=== PATIENT | female | born 1990 ===

== ENCOUNTER 2017-06-03 17:08 | Emergency (ER) | payer MEDICAID ==
[2017-06-03 17:09] VITALS: BMI 48.4
[2017-06-03 17:40] VITALS: BP 139/81; PULSE 124; RESP 20; TEMP 100.7; O2SAT 99
[2017-06-03] MEDS ORDERED: Sodium Chloride 0.9% 1,000 ML IV STA (17:59)
--- NOTE | 2017-06-03 18:35 | ED PDOC ---
Arrival/HPI - General Chief Complaint: Abdominal Pain Time Seen by Provider: 06/03/17 17:33 Historian: Patient - History of Present Illness Narrative History of Present Illness (Text): Patient is a 26 year old with a past medical history of a left sided kidney stone presenting to the emergency room with a chief complaints of right sided abdominal/flank pain. The pain woke the patient up out of her sleep at approximately 4 o'clock this morning. The pain was located in her right flank and radiated around her side and down toward her vagina. She is currently on her period but this pain is different compared to her usual menstrual pains. This pain is very sharp in nature. She woke up, drove to her mother's house and attempted to sleep the pain off. When she was unable to sleep and pain continued to increase, she decided to the emergency room. The pain has been moving and is now located more anterior in her right lower quadrant of her abdomen. She has been unable to eat or drink all day due to the pain, although she is not nauseous and has not vomited. She has not urinated much today and has no associated dysuria. She has been feeling feverish with chills but did not take her temperature at home. Denies diarrhea, constipation, chest pain, shortness of breath, palpitations, headaches, numbness or tingling. LMP: currently has her period PMH: left sided kidney stone once (treated as out patient with medications to "make me pee more and some kind of pain medicine." PSH: 2014 Family: unknown Social: smokes 1-3 cigarettes a couple times a week (1 pack lasts two weeks or longer), social alcohol (last drink on ), admits marijuana but denies illicit drug use Allergies: NKDA Time/Duration: > week (approx 10 days) Past Medical History - Provider Review Nursing Documentation Reviewed: Yes - Infectious Disease Hx of Infectious Diseases: None - Cardiac Hx Cardiac Disorders: No - Pulmonary Hx Respiratory Disorders: No - Neurological Hx Neurological Disorder: No - HEENT Hx HEENT Disorder: No - Renal Hx Renal Disorder: Yes Hx Kidney Stones: Yes Hx Pyelonephritis: Yes Other/Comment: recurrent UTI - Endocrine/Metabolic Hx Endocrine Disorders: No - Hematological/Oncological Hx Blood Disorders: No - Integumentary Hx Dermatological Disorder: No - Musculoskeletal/Rheumatological Hx Musculoskeletal Disorders: No - Gastrointestinal Hx Gastrointestinal Disorders: No - Genitourinary/Gynecological Hx Genitourinary Disorders: Yes Hx Urinary Tract Infection: Yes - Psychiatric Hx Psychophysiologic Disorder: No Hx Substance Use: No - Surgical History Hx Section: Yes Hx Orthopedic Surgery: Yes (left ankle sx) Other/Comment: 08/26/14 - Anesthesia Hx Anesthesia: No - Suicidal Assessment Feels Threatened In Home Enviroment: No Family/Social History - Physician Review Nursing Documentation Reviewed: Yes Family/Social History: Unknown Family HX Smoking Status: Never Smoked Hx Alcohol Use: Yes (socially) Frequency of alcohol use: Socially Hx Substance Use: No Allergies/Home Meds Allergies/Adverse Reactions: Allergies No Known Allergies Allergy (Verified 06/03/17 17:31) Home Medications: Home Meds Medication Instructions Recorded Confirmed No Known Home Med 06/03/17 06/03/17 Review of Systems - Review of Systems Constitutional: Fevers (subjective). absent: Fatigue Eyes: Normal. absent: Vision Changes, Photophobia ENT: Normal. absent: Sore Throat Cardiovascular: Normal. absent: Chest Pain, Palpitations, Edema Gastrointestinal: Abdominal Pain (RLQ, sharp pain radiating down towards her groin) Genitourinary Female: Urine Output Changes (decreased), Vaginal Bleeding ( currently on her period). absent: Dysuria Musculoskeletal: Back Pain (right flank) Skin: Normal Neurological: absent: Headache, Dizziness Endocrine: absent: Diaphoresis, Polydipsia (decreased oral intake) Hemo/Lymphatic: Normal. absent: Easy Bruising Psychiatric: Normal. absent: Depression Physical Exam Vital Signs Reviewed: Yes Vital Signs Temp Pulse Resp BP Pulse Ox 06/03/17 17:31 100.7 F H 124 H 20 139/81 99 06/03/17 17:09 100.7 F H 124 H 18 139/81 99 Temperature: Febrile Blood Pressure: Normal Pulse: Tachycardic Respiratory Rate: Normal Appearance: Positive for: Non-Toxic, Uncomfortable Pain Distress: Moderate Mental Status: Positive for: Alert and Oriented X 3 - Systems Exam Head: Present: Atraumatic, Normocephalic Pupils: Present: PERRL Extroacular Muscles: Present: EOMI Conjunctiva: Present: Normal Mouth: Present: Moist Mucous Membranes, Normal Lips Pharnyx: Present: Normal Nose (External): Present: Atraumatic Nose (Internal): Present: Normal Inspection, No Active Bleeding Neck: Present: Normal Range of Motion Respiratory/Chest: Present: Clear to Auscultation, Good Air Exchange. No: Respiratory Distress, Accessory Muscle Use, Wheezes Cardiovascular: Present: Normal S1, S2, Tachycardic. No: Murmurs Abdomen: Present: Tenderness (RLQ - radiated down towards groin), Normal Bowel Sounds, Other (morbidly obese). No: Distention, Peritoneal Signs, Rebound, Guarding Back: Present: CVA Tenderness (Right and Left CVA tenderness), Pain with Leg Raise (Right leg). No: Midline Tenderness, Paraspinal Tenderness Upper Extremity: Present: Normal Inspection, Normal ROM, NORMAL PULSES Lower Extremity: Present: Normal Inspection, NORMAL PULSES. No: CALF TENDERNESS Neurological: Present: GCS=15, CN II-XII Intact, Speech Normal, Motor Func Grossly Intact Skin: Present: Warm, Dry, Normal Color. No: Rashes Lymphatic: No: Cervical Adenopathy Psychiatric: Present: Alert, Oriented x 3, Normal Insight, Normal Concentration Medical Decision Making ED Course and Treatment: Patient received Tylenol 650mg, Toradol 30mg and 1 L of NS. On re-examination, patient is now pain free and states that she feels completely normal now. She has her energy back and would like to go home instead of being admitted, if possible. Will culture urine and discharge patient on antibiotics. Will call patient with results of culture if necessary to change medication. Re-evaluation Time: 20:49 Reassessment Condition: Re-examined, Improved (currently pain free) - Lab Interpretations Lab Results: 06/03/17 18:35 06/03/17 18:35 Lab Results 06/03/17 18:35: Urine Color Light red, Urine Appearance Slight-cloudy, Urine pH 8.5, Ur Specific [place] 1.015, Urine Protein 30 H, Urine Glucose (UA) Negative , Urine Ketones Trace H, Urine Blood Large H, Urine Nitrate Negative, Urine Bilirubin Negative, Urine Urobilinogen 0.2, Ur Leukocyte Esterase Small H, Urine RBC Tntc, Urine WBC 0 - 2, Ur Epithelial Cells 3 - 4, Urine HCG, Qual Negative 06/03/17 18:35: Sodium 138, Potassium 3.8, Chloride 100, Carbon Dioxide 27, Anion Gap 14, BUN 11, Creatinine 0.7, Est GFR ( Amer) > 60, Est GFR (Non- Af Amer) > 60, Random Glucose 91, Calcium 9.6, Total Bilirubin 0.5, AST 17, ALT 28, Alkaline Phosphatase 82, Total Protein 7.5, Albumin 3.9, Globulin 3.5, Albumin/Globulin Ratio 1.1 06/03/17 18:35: WBC 17.3 H D, RBC 4.50, Hgb 12.3, Hct 37.8, MCV 84.0, MCH 27.3, MCHC 32.5, RDW 14.9 H, Plt Count 290, MPV 8.9 I have reviewed the lab results: Yes (elevated WBC) - RAD Interpretation Narrative RAD Interpretations (Text): Punctate bilateral and nonobstructing renal calculi. Radiology Orders: 06/03/17 18:00 ABD & PELVIS W/O PO OR IV CONT [CT] Stat Mechanic'S Assistant: Radiologist - Medication Orders Current Medication Orders: Discontinued Medications Acetaminophen (Tylenol 325mg Tab) 650 mg PO STAT STA Stop: 06/03/17 18:00 Last Admin: 06/03/17 18:47 Dose: 650 mg MAR Pain/Vitals Document 06/03/17 18:47 SRE (Rec: 06/03/17 18:47 SRE [id number]) Pain Reassessment Is This A Pain ReAssessment? Yes Sleep Is patient sleeping during reassessment? No Presence of Pain Presence of Pain Yes Pain Scale Used Pain Scale Used Numeric Location Left, Right or Bilateral Right Pain Location Body Site Abdomen Description Constant Sodium Chloride (Sodium Chloride 0.9%) 1,000 mls @ 999 mls/hr IV .Q1H1M STA Stop: 06/03/17 18:59 Last Admin: 06/03/17 18:45 Dose: 999 mls/hr eMAR Start Stop Document 06/03/17 18:45 SRE (Rec: 06/03/17 18:47 SRE [id number]) Intravenous Solution Start Date 06/03/17 Start Time 18:00 End Date 06/03/17 End time 19:00 Total Infusion Time 60 Ketorolac Tromethamine (Toradol) 30 mg IVP STAT STA Stop: 06/03/17 18:09 Last Admin: 06/03/17 18:47 Dose: 30 mg MAR Pain Assessment Document 06/03/17 18:47 SRE (Rec: 06/03/17 18:48 SRE [id number]) Pain Reassessment Is this a pain reassessment? Yes Sleep Is patient sleeping during reassessment? No Presence of Pain Presence of Pain Yes Location Left, Right or Bilateral Right Pain Location Body Site Abdomen Description Description Constant IVP Administration Document 06/03/17 18:47 SRE (Rec: 06/03/17 18:48 SRE [id number]) Charges for Administration # of IVP Administrations 1 Disposition/Present on Arrival - Present on Arrival Any Indicators Present on Arrival: No History of DVT/PE: No History of Uncontrolled Diabetes: No Urinary Catheter: No History of Decub. Ulcer: No History Surgical Site Infection Following: None - Disposition Have Diagnosis and Disposition been Completed?: Yes Diagnosis: Flank pain Disposition: HOME/ ROUTINE Disposition Time: 20:51 Patient Plan: Discharge Condition: GOOD Discharge Instructions (ExitCare): Flank Pain Additional Instructions: Patient is to be discharged home per Dr. Love. Patient is being discharged on Macrobid 100mg PO BID x 7 days. Patient has been instructed to complete her entire course of antibiotics. If she experiences any new or worsening symptoms, please go to the nearest emergency room. Referrals: Jayla Duque APN [Primary Care Provider] - Follow up with primary Forms: OWM (Uzbek)
[2017-06-03 19:04] LABS: ALB/GLOB RATIO 1.1 (1.1-1.8); ALBUMIN 3.9 g/dL (3.0-4.8); ALT/SGPT 28 U/L (7-56); AST/SGOT 17 U/L (14-36); BLOOD UREA NITROGEN 11 mg/dL (7-21); CALCIUM 9.6 mg/dL (8.4-10.5); GFR AFRICAN-AMERICAN > 60; GFR NON-AFRICAN AMERICAN > 60; HEMOGLOBIN 12.3 g/dL (12.0-16.0); MEAN CORPUSCULAR HEMOGLOBIN 27.3 pg (25.0-35.0); MEAN CORPUSCULAR HGB CONC 32.5 g/dl (31.0-37.0); MEAN PLATELET VOLUME 8.9 fl (7.0-11.0); PH,URINE 8.5 (4.7-8.0); RBC 4.5 10^6/uL (3.5-6.1); RED CELL DISTRIBUTION WIDTH 14.9 % (11.5-14.5); URINE BILIRUBIN NEGATIVE (NEGATIVE); URINE BLOOD LARGE (NEGATIVE); URINE GLUCOSE (UA) NEGATIVE (NEGATIVE); URINE LEUKOCYTE ESTERASE SMALL Leu/uL (NEGATIVE); URINE PROTEIN 30 mg/dL (<30 mg/dL); URINE UROBILINOGEN 0.2 E.U./dL (<1 E.U./dL); WHITE BLOOD COUNT 17.3 10^3/ul (4.5-11.0)
[2017-06-03 19:07] LABS: URINE APPEARANCE SLIGHT-CLOUDY (CLEAR); URINE COLOR LIGHT RED (YELLOW)
[2017-06-03 19:08] LABS: HCG,QUALITATIVE URINE NEGATIVE (NEGATIVE)
[2017-06-03 19:13] LABS: URINE RBC TNTC /hpf (0-2); URINE WBC 0 - 2 /hpf (0-6)
--- NOTE | 2017-06-03 20:40 | CT ---
EXAM: CT Abdomen and Pelvis Without Intravenous Contrast CLINICAL HISTORY: 26 years old, female; Pain; Abdominal pain; Acute; Additional info: Rlq pain, HX of kidney stone TECHNIQUE: Axial computed tomography images of the abdomen and pelvis without intravenous contrast. All CT scans at this facility use one or more dose reduction techniques, viz.: automated exposure control; ma/kV adjustment per patient size (including targeted exams where dose is matched to indication; i.e. head); or iterative reconstruction technique. Coronal and sagittal reformatted images were created and reviewed. COMPARISON: No relevant prior studies available. FINDINGS: Lung bases: Unremarkable. No mass. No consolidation. ABDOMEN: Liver: Hepatomegaly. Liver measures 22 CM longitudinally. Gallbladder and bile ducts: Unremarkable. No calcified stones. No ductal dilation. Pancreas: Unremarkable. No ductal dilation. Spleen: Unremarkable. No splenomegaly. Adrenals: Unremarkable. No mass. Kidneys and ureters: Punctate bilateral and nonobstructing renal calculi. Stomach and bowel: Unremarkable. No obstruction. Appendix: No findings to suggest acute appendicitis. PELVIS: Bladder: Unremarkable. No stones. Reproductive: Unremarkable as visualized. ABDOMEN and PELVIS: Intraperitoneal space: Unremarkable. No free air. No significant fluid collection. Bones/joints: No acute fracture. No dislocation. Soft tissues: Unremarkable. Vasculature: Unremarkable. No abdominal aortic aneurysm. Lymph nodes: Unremarkable. No enlarged lymph nodes. IMPRESSION: 1. Punctate bilateral and nonobstructing renal calculi. 2. Remainder of findings as above.
== END 2017-06-03 21:40 | disposition home or self-care (01) ==
LOC: ED 17:08
DX: R10.9 Unspecified abdominal pain (principal); Z87.442 Personal history of urinary calculi
CPT/HCPCS: 74176; 80053; 81001; 84703; 85027; 87086; 96361; 96374; 99284; J1885; J7040

== ENCOUNTER 2017-09-23 19:36 | Emergency (ER) | payer MEDICAID ==
[2017-09-23 19:47] VITALS: BMI 53.2
[2017-09-23 20:03] VITALS: TEMP 99
[2017-09-23] MEDS ORDERED: Naproxen 550 mg Tab PO STA (20:03)
--- NOTE | 2017-09-23 20:07 | ED PDOC ---
Arrival/HPI - General Chief Complaint: Abnormal Skin Integrity Time Seen by Provider: 09/23/17 19:45 Historian: Patient - History of Present Illness Narrative History of Present Illness (Text): 09/23/17 20:04 27 yo F c/o painful red itchy bumps to her R upper back, R axilla and R chest x 5 days. Denies any fever, chills, CP, SOB, URI symptoms. Reports h/o varicella as a child. Patient also c/o R knee pain, states that she fell and injured her knee 5 days ago. Reports no numbness, decrease in ROM and any other injury. Past Medical History - Infectious Disease Hx of Infectious Diseases: None - Cardiac Hx Cardiac Disorders: No - Pulmonary Hx Respiratory Disorders: No - Neurological Hx Neurological Disorder: No - HEENT Hx HEENT Disorder: No - Renal Hx Renal Disorder: Yes Hx Kidney Stones: Yes Hx Pyelonephritis: Yes Other/Comment: recurrent UTI - Endocrine/Metabolic Hx Endocrine Disorders: No - Hematological/Oncological Hx Blood Disorders: No - Integumentary Hx Dermatological Disorder: No - Musculoskeletal/Rheumatological Other/Comment: ankle sx - Gastrointestinal Hx Gastrointestinal Disorders: No - Genitourinary/Gynecological Hx Genitourinary Disorders: Yes Hx Urinary Tract Infection: Yes - Psychiatric Hx Psychophysiologic Disorder: No Hx Substance Use: No - Surgical History Hx Section: Yes Hx Orthopedic Surgery: Yes (left ankle sx) Other/Comment: 08/26/14 - Anesthesia Hx Anesthesia: Yes Hx Anesthesia Reactions: No Hx Malignant Hyperthermia: No - Suicidal Assessment Feels Threatened In Home Enviroment: No Family/Social History Family/Social History: No Known Family HX Smoking Status: Never Smoked Hx Alcohol Use: Yes (socially) Hx Substance Use: No Allergies/Home Meds Allergies/Adverse Reactions: Allergies No Known Allergies Allergy (Verified 06/03/17 17:31) Review of Systems - Review of Systems Constitutional: absent: Fatigue, Fevers ENT: absent: Sore Throat, Rhinorrhea, Sinus Congestion Respiratory: absent: SOB, Cough Cardiovascular: absent: Chest Pain, Palpitations Musculoskeletal: Arthralgias. absent: Back Pain, Neck Pain Skin: Rash. absent: Pruritis Neurological: absent: Headache, Dizziness Physical Exam Vital Signs Reviewed: Yes Vital Signs Temp Pulse Resp BP Pulse Ox 09/23/17 20:02 99.0 F 114 H 18 146/73 93 L Appearance: Positive for: Well-Appearing, Non-Toxic, Comfortable Pain Distress: Mild Mental Status: Positive for: Alert and Oriented X 3 - Systems Exam Head: Present: Atraumatic, Normocephalic Pupils: Present: PERRL Extroacular Muscles: Present: EOMI Conjunctiva: Present: Normal Mouth: Present: Moist Mucous Membranes Neck: Present: Normal Range of Motion Respiratory/Chest: Present: Clear to Auscultation, Good Air Exchange. No: Respiratory Distress, Accessory Muscle Use Cardiovascular: Present: Regular Rate and Rhythm, Normal S1, S2. No: Murmurs Upper Extremity: Present: Normal Inspection, Normal ROM. No: Cyanosis, Edema Lower Extremity: Present: Normal Inspection, NORMAL PULSES, Normal ROM, Tenderness (+mild tenderness to the R knee), Neurovascularly Intact, Capillary Refill < 2 s. No: Edema, Swelling, Temperature Abnormalties Neurological: Present: GCS=15, CN II-XII Intact, Speech Normal, Motor Func Grossly Intact, Normal Sensory Function Skin: Present: Warm, Dry, Normal Color, Other (+multiple ). No: Rashes Psychiatric: Present: Alert, Oriented x 3, Normal Insight, Normal Concentration Medical Decision Making ED Course and Treatment: 09/23/17 20:08 27 yo F with herpes zoster, also c/o R knee pain. Plan : - Acyclovir PO - Naprosyn PO - XR R knee XR R knee : no fracture, no dislocation, as read by ABILIO. X-ray results discussed with the patient in great detail. Guzman wrap applied to the R knee. Patient instructed to follow-up with pmd in 1-2 days without fail. Advised to take medication as prescribed. Rest, ice and elevate the joint. Advised that the zoster infection is contagious and to avoid contact with anyone who has never had varicella. Return to the emergency room at any time for any new or worsening symptoms. Patient states he fully agrees with and understands discharge instructions. States that he agrees with the plan and disposition. Verbalized and repeated discharge instructions and plan. I have given the patient opportunity to ask any additional questions. 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 Disposition/Present on Arrival - Present on Arrival Any Indicators Present on Arrival: No History of DVT/PE: No History of Uncontrolled Diabetes: No Urinary Catheter: No History of Decub. Ulcer: No History Surgical Site Infection Following: None - Disposition Have Diagnosis and Disposition been Completed?: Yes Diagnosis: Herpes zoster, Right knee sprain Disposition: HOME/ ROUTINE Disposition Time: 20:00 Patient Plan: Discharge Condition: STABLE Discharge Instructions (ExitCare): Shingles (ED), Knee Sprain (DC) Additional Instructions: Thank you for letting us take care of you today. You were treated for herpes zoster, right knee sprain. The emergency medical care you received today was directed at your acute symptoms. If you were prescribed any medication, please fill it and take as directed. It may take several days for your symptoms to resolve. Return to the Emergency Department if your symptoms worsen, do not improve, or if you have any other problems. Please contact your doctor in 2 days for re-evaluation and follow up. Bring any paperwork you were given at discharge with you along with any medications you are taking to your follow up visit. Our treatment cannot replace ongoing medical care by a primary care provider (PCP) outside of the emergency department. Thank you for allowing the [facility] team to be part of your care today. If you had an X-Ray : A Radiologist will review the ED reading if any change in treatment is needed we will contact you. Prescriptions: Acyclovir [Zovirax] 800 mg PO 5XD #35 tablet Cetirizine HCl [Zyrtec] 10 mg PO DAILY #30 capsule Naproxen 500 mg PO BID PRN #20 tablet PRN Reason: Pain, Moderate (4-7)
[2017-09-23 21:26] VITALS: BP 122/78; PULSE 98; RESP 20; O2SAT 95
--- NOTE | 2017-09-24 09:29 | RAD ---
Date of service: 09/23/2017 PROCEDURE: Right Knee Radiographs. HISTORY: pain COMPARISON: None. FINDINGS: BONES: Normal. No fracture. JOINTS: Normal. No osteoarthritis. JOINT EFFUSION: None. OTHER FINDINGS: None. IMPRESSION: Normal radiographs of the right knee.
== END 2017-09-23 21:25 | disposition home or self-care (01) ==
LOC: ED 19:36
DX: B02.9 Zoster without complications (principal); S83.91XA Sprain of unspecified site of right knee, initial encounter; W19.XXXA Unspecified fall, initial encounter; Y92.9 Unspecified place or not applicable